=== PATIENT | female | born 1980 | race African-American/Black ===

== ENCOUNTER 2019-10-31 03:56 | Emergency (ER) | payer MEDICAID ==
[~2019-10-31] VITALS: Ht 162.6 cm; Wt 90.0 kg
[~2019-10-31 03:56] MED LIST: PROZAC
[2019-10-31 03:59] VITALS: BP 135/100
[2019-10-31] MEDS ORDERED: BACITRACIN ZINC OINT UDPKT TOP ONE (06:30)
[2019-10-31] MEDS ORDERED: LIDOCAINE HCL/PF 1% 10 MG/ML 5ML VIAL IJ ONE (06:30)
== END 2019-10-31 08:55 | disposition home or self-care (01) ==
LOC: ER 04:04
DX: S01.21XA Laceration without foreign body of nose, initial encounter (principal); W01.0XXA Fall on same level from slipping, tripping and stumbling without subsequent striking against object, initial encounter; Y93.89 Activity, other specified; Y92.89 Other specified places as the place of occurrence of the external cause; Y99.8 Other external cause status; Z98.890 Other specified postprocedural states
CPT/HCPCS: 12011; 99282; J3490

== ENCOUNTER 2019-11-11 13:57 | Emergency (ER) | payer MEDICAID ==
[~2019-11-11] VITALS: Ht 162.6 cm; Wt 85.5 kg
[2019-11-11 14:36] VITALS: BP 126/93
== END 2019-11-11 18:58 | disposition left against medical advice (07) ==
LOC: ER 13:57
DX: Z53.21 Procedure and treatment not carried out due to patient leaving prior to being seen by health care provider (principal); Z88.0 Allergy status to penicillin